=== PATIENT | female | born 1955 | race Caucasian/White ===

== ENCOUNTER 2018-08-13 15:41 | Outpatient (REF) | payer BC, SELFPAY ==
--- NOTE | 2018-08-13 11:50 | PAPFT_PTH ---
PATIENT: Mahesh Hernandez LOC: [facility] U#:[id number] AGE/SX: 63/F ROOM: RE08/13/[address]: DORITA Maria : 1955 BED: DIS: 08/13/2018 SPEC #: [id number] RECD: 08/13/18 17:03 STATUS: ARY RETessa #: [id number] DENZEL: 08/13/18 11:[address]: Luann Willard DEPT: [facility] Cytology RECD BY: Elizabeth Varner ENTERED: 08/13/18 17:03 SP TYPE: PAPFT OTHR DR: Courtney Kruse Tissues: 1 - CX/ENDOCX FOR PAP SMEARS Procedures: PAP THIN PREP/UVM Screening HPV DNA PROBE Comments: [id number]
== END 2018-08-13 16:01 ==
LOC: LBN 15:41
PROVIDERS: PCP Family Medicine; Visit Provider Nurse Practitioner Family
DX: Z12.4 Encounter for screening for malignant neoplasm of cervix (principal); Z11.51 Encounter for screening for human papillomavirus (HPV)
CPT/HCPCS: 88142; 87624

== ENCOUNTER 2018-08-23 01:48 | Outpatient (CLI) | payer BC, SELFPAY ==
--- NOTE | 2018-08-23 10:50 | DI.MAMMO_ITS ---
SYMPTOMS/DIAGNOSIS: SCREENING, Z12.31 MAMMOGRAM: Mammograms were interpreted according to the usual protocol including computer analysis with CAD system, tomosynthesis and C view imaging. Comparison with prior examinations. Breast density B. There are scattered nodular densities in the breasts which appear stable. No suspicious masses or microcalcifications are seen. The skin and axilla are unremarkable. IMPRESSION: No evidence for malignancy. Yearly mammography is recommended. Category 2. MQSA ASSESSMENT OF FINDINGS: Negative with benign findings. Category 2. Patient will receive a letter notifying them of these results. BI-RADS category B. There are scattered areas of fibroglandular density.
== END 2018-08-23 02:08 ==
PROVIDERS: PCP Family Medicine; Visit Provider Nurse Practitioner Family
DX: Z12.31 Encounter for screening mammogram for malignant neoplasm of breast (principal)
CPT/HCPCS: 77063; 77067

== ENCOUNTER 2018-11-23 09:06 | Outpatient (REF) | payer BC, SELFPAY ==
[2018-11-23 22:13] LABS: BUN 11 mg/dL (7-18); CREATININE 0.65 mg/dL (0.55-1.02); Calcium 8.6 mg/dL (8.5-10.1); Calculated LDL 201; Chloride 101 mmol/L (98-107); Cholesterol 282 mg/dL (50-200); Glucose 89 mg/dL (70-100); HDL Cholesterol 57 mg/dL (40-60); Potassium 4.3 mmol/L (3.5-5.1); Sodium 139 mmol/L (136-145); Triglyceride 124 mg/dL (30-150)
[2018-11-23 22:42] LABS: Uric Acid 4.2 mg/dL (2.6-6.0)
== END 2018-11-23 09:26 ==
LOC: NCHCN 09:06
PROVIDERS: PCP Family Medicine; Visit Provider Family Medicine
DX: E78.49 Other hyperlipidemia (principal); M13.80 Other specified arthritis, unspecified site
CPT/HCPCS: 80048; 80061; 83721; 84550

== ENCOUNTER 2019-10-28 12:58 | Outpatient (REF) | payer BC, SELFPAY ==
[2019-10-28 21:36] LABS: Calculated LDL 204 mg/dL (<100); Cholesterol 289 mg/dL (<200); HDL Cholesterol 58 mg/dL (40-60); Triglyceride 138 mg/dL (<150)
[2019-10-28 22:15] LABS: Hemoglobin A1C 5.5 % (3.8-5.6)
== END 2019-10-28 13:18 ==
LOC: NCHCN 12:58
PROVIDERS: PCP Family Medicine; Visit Provider Family Medicine
DX: E78.49 Other hyperlipidemia (principal); Z00.00 Encounter for general adult medical examination without abnormal findings
CPT/HCPCS: 80061; 83036

== ENCOUNTER 2020-02-07 00:28 | Outpatient (CLI) | payer BC, SELFPAY ==
--- NOTE | 2020-02-07 11:00 | DI.MAMMO_ITS ---
EXAM: MG MAMMO SCREENING CLINICAL HISTORY: screening TECHNIQUE: Mammograms were interpreted according to the usual protocol including computer analysis w [employer] CAD system, tomosynthesis and C-view imaging. COMPARISON: FINDINGS: The breasts are of moderate density with fairly symmetrical distribution of fibroglandular tissue. N o dominant mass or clumped microcalcification is identified in either breast. The current examinatio n is compared with previous examinations including August 2018 and there has no gross interval change in appearance in comparison with the prior studies. IMPRESSION: No specific evidence of malignancy at this time. Routine screening examinations are suggested yearl y intervals in this age group according to the ACS ACR guidelines. Category: BI-RADS Cat 1 - Negative Breast Density - Category B - Scattered areas of fibroglandular density
== END 2020-02-07 00:48 ==
PROVIDERS: PCP Family Medicine; Visit Provider Nurse Practitioner Family
DX: Z12.31 Encounter for screening mammogram for malignant neoplasm of breast (principal); R92.2 Inconclusive mammogram
CPT/HCPCS: 77063; 77067

== ENCOUNTER 2022-01-09 12:16 | Outpatient (REF) | payer OTHER, SELFPAY ==
[2022-01-09 20:40] LABS: Iron 97 ug/dL (50-170); Total Iron Binding Capacity 251 ug/dL (250-450); Transferrin Sat 39 % (15-50)
[2022-01-09 20:53] LABS: Ferritin 138 ng/mL (8-252)
[2022-01-13 10:00] LABS: Transferrin 197 mg/dL (201-352)
== END 2022-01-09 12:17 | disposition home or self-care (01) ==
LOC: NCHCN 12:16
PROVIDERS: PCP Family Medicine; Visit Provider Family Medicine
DX: Z13.0 Encounter for screening for diseases of the blood and blood-forming organs and certain disorders involving the immune mechanism (principal)
CPT/HCPCS: 82728; 83540; 83550; 84466

== ENCOUNTER 2022-05-26 17:07 | Outpatient (REF) | payer MEDICARE, SELFPAY ==
--- NOTE | 2022-05-26 11:40 | PAPFT_PTH ---
PATIENT: Mahesh Hernandez LOC: [facility] U#:[id number] AGE/SX: 67/F ROOM: RE05/26/[address]: Patria Aguiar MD : 1955 BED: DIS: 05/26/2022 SPEC #: [id number] RECD: 05/26/22 17:36 STATUS: ARY RETessa #: [id number] DENZEL: 05/26/22 11:[address]: Patria Aguiar DEPT: [facility] Cytology RECD BY: Elizabeth Varner ENTERED: 05/26/22 17:37 SP TYPE: PAPFT OTHR DR: Courtney Kruse Tissues: 1 - CX/ENDOCX FOR PAP SMEARS Procedures: PAP THIN PREP/UVM Screening HPV DNA PROBE Comments: [id number]
== END 2022-05-26 17:08 | disposition home or self-care (01) ==
LOC: LBN 17:07
PROVIDERS: PCP Family Medicine; Visit Provider Obstetrics & Gynecology
DX: Z11.51 Encounter for screening for human papillomavirus (HPV); Z01.419 Encounter for gynecological examination (general) (routine) without abnormal findings
CPT/HCPCS: 88142; 87624

== ENCOUNTER 2022-06-25 01:47 | Outpatient (CLI) | payer MEDICARE, SELFPAY ==
--- NOTE | 2022-06-25 13:08 | DI.MAMMO_ITS ---
Exam(s) MAMMO SCREENING EXAM: MAMMO SCREENING CLINICAL HISTORY: screening,z12.39 TECHNIQUE: Mammograms were interpreted according to the usual protocol including computer analysis w [employer] CAD system, tomosynthesis and C-view imaging. COMPARISON: 2013 through 2019 FINDINGS: The breasts are composed of scattered fibroglandular densities, Breast Density category B. No suspicious masses or suspicious microcalcifications are seen. No skin thickening or abnormal axillary lymph nodes are seen. There has been no significant change from prior exams. IMPRESSION: BI-RADS Category 1, Negative mammogram Yearly screening mammography is recommended. Breast Density - Category B, scattered fibroglandular densities. A negative radiographic report should not delay biopsy if a dominant or clinically suspicious mass is present. Up to ten percent of cancers are not identified on mammography. A negative report may reinforce clinical impression. Adenosis and dense breasts may obscure an underlying neoplasm. False positive reports average 6 to 10%. Patient will receive a letter notifying them of these results.
== END 2022-06-25 02:07 ==
LOC: DI 01:47
PROVIDERS: PCP Family Medicine; Visit Provider Obstetrics & Gynecology
DX: Z12.31 Encounter for screening mammogram for malignant neoplasm of breast (principal)
CPT/HCPCS: 77063; 77067

== ENCOUNTER 2022-07-15 15:25 | Outpatient (REF) | payer MEDICARE, SELFPAY ==
[2022-07-15 21:14] LABS: Anion Gap 7.7 mmol/L (3-11); BUN 13 mg/dL (7-18); CO2 29.3 mmol/L (21.0-32.0); CREATININE 0.6 mg/dL (0.55-1.02); Calcium 9.4 mg/dL (8.5-10.1); Calculated LDL 263 mg/dL (<100); Chloride 99 mmol/L (98-107); Cholesterol 343 mg/dL (<200); Estimated GFR 98.32 (mL/min/1.73m2); Glucose 113 mg/dL (74-106); HDL Cholesterol 63 mg/dL (40-60); Potassium 3.6 mmol/L (3.5-5.1); Sodium 136 mmol/L (136-145); Triglyceride 87 mg/dL (<150)
== END 2022-07-15 15:26 | disposition home or self-care (01) ==
LOC: NCHCN 15:25
PROVIDERS: PCP Family Medicine; Visit Provider Family Medicine
DX: R73.09 Other abnormal glucose (principal); E78.00 Pure hypercholesterolemia, unspecified
CPT/HCPCS: 80048; 80061

== ENCOUNTER 2022-10-15 13:01 | Outpatient (REF) | payer MEDICARE, SELFPAY ==
--- OUTSIDE RECORDS SUMMARY | 2022-10-15 13:09 | XMS_ITS | CCD ---
Author Name Unknown Address [address] [place] [address] [phone] Organization Unknown Address [address] [place] [address] [phone] Care Team Providers Care Dog Breeder Name Role Phone LADY BAEZ Attending Physician [phone] Vital Signs Unknown or Not Available. Allergies Allergy Code Allergy Type Reaction Status LATEX 0 Allergy to substance LOCAL RASH Acti ve Procedures Unknown or Not Available. History of Immunizations Unknown or Not Available. Problems Unknown or Not Available. Results Unknown or Not Available. Active Medications Unknown or Not Available. Medications Administered During Visit Unknown or Not Available. Encounters Encounter Diagnosis Diagnosis Code Start Date Other forms of dyspnea R0609 3 Social History Smoking Status Code Start Date End Date Never smoker [id number] Patient Decision Aids Unknown or Not Available. Discharge Instructions You were admitted to [facility] on 08/29/2022 12:40 with a principal diagnosis of Other forms of dyspnea You were discharged from [facility] on 08/29/2022 12:40 Should you have any questions prior to discharge, please contact a member of your healthcare team. If you have left the hospital and have any questions, please contact your primary care physician. Chief Complaint and Reason For Visit Unknown or Not Available. Function Status Unknown or Not Available. Plan of Care Unknown or Not Available. Referral/Transition of Care Unknown or Not Available.
--- OUTSIDE RECORDS SUMMARY | 2022-10-15 13:09 | XMS_ITS | CCD ---
Author Name Unknown Address [address] [place] [address] [phone] Organization Unknown Address [address] [place] [address] [phone] Care Team Providers Care Blade Balancer Name Role Phone FRANCIS NEVAREZ Attending Physician [phone] FRANCIS NEVAREZ Rounding (Secondary) Physician [phone] Vital Signs Unknown or Not Available. Allergies [...] Encounters Encounter Diagnosis Diagnosis Code Start Date Hallux rigidus, right foot M2021 12/12 Social History Smoking Status Code Start Date End Date Never smoker [id number] Patient Decision Aids Unknown or Not Available. Discharge Instructions You were admitted to [facility] on 12/12/2021 14:29 with a principal diagnosis of Hallux rigidus, right foot You were discharged from [facility] on 12/12/2021 00:00 Should you have any questions prior to [...]
--- OUTSIDE RECORDS SUMMARY | 2022-10-15 13:09 | XMS_ITS | CCD ---
Author Name Unknown Address [address] [place] [address] [phone] Organization Unknown Address [address] [place] [address] [phone] Care Team Providers Care Printer Slotter Operator Name Role Phone FRANCIS NEVAREZ Attending Physician [phone] FRANCIS NEVAREZ Rounding (Secondary) Physician [phone] Vital Signs Unknown or Not Available. Allergies [...] Start Date Hallux rigidus, right foot M2021 01/07 Social History Smoking Status Code Start Date End Date Never smoker [id number] Patient Decision Aids Unknown or Not Available. Discharge Instructions You were admitted to [facility] on 01/07/2022 11:42 with a principal diagnosis of Hallux rigidus, right foot You were discharged from [facility] on 01/07/2022 00:00 Should you have any questions prior [...]
[2022-10-15 15:17] LABS: ALT 37 U/L (14-59); Calculated LDL 74 mg/dL (<100); Cholesterol 154 mg/dL (<200); HDL Cholesterol 66 mg/dL (40-60); Triglyceride 70 mg/dL (<150)
== END 2022-10-15 13:02 | disposition home or self-care (01) ==
LOC: NCHCN 13:01
PROVIDERS: PCP Family Medicine; Visit Provider Family Medicine
DX: E78.49 Other hyperlipidemia (principal)
CPT/HCPCS: 80061; 84460

== ENCOUNTER 2024-07-29 00:04 | Outpatient (CLI) | payer MEDICARE, SELFPAY ==
--- OUTSIDE RECORDS SUMMARY | 2024-07-29 00:06 | XMS_ITS | Clinical Summary ---
Author Organization [facility] [place] [address] Care Team Providers Care Security Infrastructure Engineer Name Role Phone Unavailable Primary Care Provider Unavailabl e Encounters Date Type Department Care Team Description 06/22/2024 Interpretation Only [facility] in [address] [address] Courtney Kruse MD from Last 3 Months Social History Tobacco Use Types Packs/Day Years Used Date Smoking Tobacco: Never Assessed Sex and Gender Information Value Date Recorded Sex Assigned at Not on file Gender Identity Not on file Sexual Orientation Not on file Plan of Treatment Health Maintenance Due Date Last Done Comments CT Colonography 1955 Colonoscopy 1955 Colorectal Cancer Screening 1955 FIT DNA 1955 FIT 1955 Sigmoidoscopy (10 year) with FIT yearly 1955 Sigmoidoscopy 1955 Hepatitis C Screening 1973 Tetanus/Diphtheria/Pertussis Vaccines (1 - Tdap) 02/25 Breast Cancer Share Decision Needed 1995 Breast Cancer screening 1995 Pneumoccocal Vaccine: 50+ (1 of 1 - PCV) 2005 Zoster vaccine (1 of 2) 2005 Advance Directive 2010 Covid-19 Vaccine ( - 2023- season) 2024 Influenza (Flu) vaccine (1 o f 1 - Influenza standard series) 02/14/2024 Bone Density Scan 06/22/2039 06/22/2024 Procedures Procedure Name Priority Date/Time Associated Diagnosis Comments DXA CENTRAL SPINE, HIP, AND/OR WHOLE BODY (GENERIC) Routine 06/22/2024 12:33 PM EST from Last 3 Months Results * DXA Central Spine, Hip, and/or Whole Body (Generic) (06/22/2024 12:33 PM EST) PT CLASS O RAD ADMITDTTM [id number] [facility] PT [facility] INFO [id number]^NIRMAL ^COURTNEY^E RAD EXAM DESC XDXAC^BD DXA BONE DENSITY HIP AND SPINE^RIS [facility] WORKSTATION ID [id number] [facility] Anatomical Region Laterality Modality C-spine, Hip N/A Radiographic Tiana ging Impressions 06/22/2024 5:06 PM EST Osteopenia in the lumbar spine and the left femoral neck. ___ Prevent Fractures! PATIENTS NOT ON TREATMENT: For patients with osteopenia, *the fracture risk calculated by FRAX is displayed below*. Offer treatment for osteoporosis (calcium, vitamin D, and medication) if: * ??T less than or equal to -2.5, after excluding or treating secondary causes * ??FRAX gives a 10-year risk of hip fracture greater than or equal to 3% or major osteoporotic fracture (MOF) greater than or equal to 20% * ??Fragility fracture, regardless of T score (fracture without trauma, or from trauma equivalent to falling from standing height or less) If not treating, repeat DXA at the following intervals: * ??T greater than or equal to -1(normal): Repeat DXA in 10-15 years * ??T -1.0 to -1.5 (mild osteopenia): Repeat DXA in 10-15 years * ??T -1.5 to 2.0 (moderate osteopenia): Repeat DXA in 5 years * ??T -2.0 to -2.5 (severe osteopenia): Repeat DXA in 2 years The bone density raw data are listed below. Bone density raw data: Thank you for letting us participate in the care of this patient. ??If you are a health care provider and have any questions regarding this report, please contact the number below. ??For patients who have questions please contact the health inpatient care manager rn that requested your imaging first. ? Narrative 06/22/2024 5:06 PM EST EXAMINATION: BD DXA BONE DENSITY HIP AND SPINE CLINICAL HISTORY: ??Reason for Spine: ??POSTMENOPAUSAL Add'l Info: TECHNIQUE: Scans were acquired at the lumbar spine, LEFT hip. COMPARISON: October 03, 2009 FINDINGS: ?? Bone mineral density in the lumbar spine L1 L4 is 0.880 g/sq cm with T score -1.5. There is 2.9% decrease in bone mineral density compared to 2009. Bone mineral density in the left hip is 0.796 g/sq cm with T score -1.2. Bone mineral density in the left femoral neck is 0.622 g/sq cm with T score -2.0. There is 7.8% decrease in bone mineral density compared to 2010. The FRAX score, an estimated 10 year fracture risk is: * ??Major osteoporotic fracture: 12% Hip fracture: 2.3% Procedure Note Noah Hodge MD - 06/22/2024 EXAMINATION: BD DXA BONE DENSITY HIP AND SPINE CLINICAL HISTORY: Reason for Spine: POSTMENOPAUSAL Add'l Info: TECHNIQUE: Scans were acquired at the lumbar spine, LEFT hip. COMPARISON: October 03, 2009 FINDINGS: Bone mineral density in the lumbar spine L1 L4 is 0.880 g/sq cm with Tscore -1.5. There is 2.9% decrease in bone mineral density compared to 2010. Bone mineral density in the left hip is 0.796 g/sq cm with T score -1.2. Bone mineral density in the left femoral neck is 0.622 g/sq cm with Tscore -2.0. There is 7.8% decrease in bone mineral density compared to 2010. The FRAX score, an estimated 10 year fracture risk is: * Major osteoporotic fracture: 12% Hip fracture: 2.3% IMPRESSION Osteopenia in the lumbar spine and the left femoral neck. ___ Prevent Fractures! PATIENTS NOT ON TREATMENT: For patients with osteopenia, *the fracture risk calculated by FRAX isdisplayed below*. Offer treatment for osteoporosis (calcium, vitamin D, and medication)if: * T less than or equal to -2.5, after excluding or treating secondarycauses * FRAX gives a 10-year risk of hip fracture greater than or equal to 3%or major osteoporotic fracture (MOF) greater than or equal to 20% * Fragility fracture, regardless of T score (fracture without trauma, orfrom trauma equivalent to falling from standing height or less) If not treating, repeat DXA at the following intervals: * T greater than or equal to -1(normal): Repeat DXA in 10-15 years * T -1.0 to -1.5 (mild osteopenia): Repeat DXA in 10-15 years * T -1.5 to 2.0 (moderate osteopenia): Repeat DXA in 5 years * T -2.0 to -2.5 (severe osteopenia): Repeat DXA in 2 years The bone density raw data are listed below. Bone density raw data: Thank you for letting us participate in the care of this patient. If youare a health care provider and have any questions regarding this report,please contact the number below. For patients who have questions please contactthe health inpatient care manager rn that requested your imaging first. Courtney Kruse MD IMG DEXA ORDERABLES from Last 3 Months
--- OUTSIDE RECORDS SUMMARY | 2024-07-29 00:06 | XMS_ITS | Encounter Summary ---
Author Organization [facility] [place] [address] Care Team Providers Care Exterior Door Installer Name Role Phone Unavailable Primary Care Provider Paddy e Encounter Details Date Type Department Care Team (Late st Contact Info) Description 06/22/[address] [facility] in [address] [phone] Courtney Kruse MD [address] [place], [place] [phone] Social History Tobacco Use Types Packs/Day Years Used Date Smoking Tobacco: Never Assessed Sex and Gender Information Value Date Recorded Sex Assigned at Not on file Gender Identity Not on file Sexual Orientation Not on file documented as of this encounter Plan of Treatment Not on file documented as of this encounter Procedures Procedure Name Priority Date/Time Associated Diagnosis Comments DXA CENTRAL SPINE, HIP, AND/OR WHOLE BODY (GENERIC) Routine 06/22/2024 12:33 PM EST documented in this encounter Results * DXA Central Spine, Hip, and/or Whole Body (Generic) (06/22/2024 12:33 PM EST) PT CLASS O RAD ADMITDTTM [id number] RAD PT RAD INFO [id number]^NIRMAL ^COURTNEY^Tania RAD EXAM DESC XDXAC^BD DXA BONE DENSITY HIP AND SPINE^RIS [facility] WORKSTATION ID [id number] [facility] Anatomical Region Laterality Modality C-spine, Hip N/A [...] who have questions please contact the health rn coronary care unit that requested your imaging first. ? Electronically signed by: Noah Hodge MD, [facility] ([phone]), at 06/22/2024 5:06 PM Narrative 06/22/2024 5:06 PM EST EXAMINATION: BD [...] in bone mineral density compared to 2009. The FRAX score, an estimated 10 year [...] in bone mineral density compared to 2009. The FRAX score, an estimated 10 year [...] patients who have questions please contactthe health rn coronary care unit that requested your imaging first. Courtney Kruse MD IMG DEXA ORDERABLES documented in this encounter Visit Diagnoses Not on filedocumented in this encounter
--- OUTSIDE RECORDS SUMMARY | 2024-07-29 00:07 | XMS_ITS ---
Author Organization Unknown Address [address] [place] [address] [phone] Phone Care Team Providers Care Toddler Lead Teacher Name Role Phone ROQUE Valencia Attending Unavailable NIRMAL Marin Primary Unavailable Results XR FOOT 2V LT* - Completed: 01/07/2022 14:08 LOINC: LEFT FOOT - 2 VIEWS:AP and l ateral weightbearing views reveal no evidence of fracture nor diastasis of the Lis franc joint. Degenerative changes in the great toe metatarsal phalangeal joint noted. No erosions at this level. On the lateral view there is a tiny inferior calcaneal spur. Enthesophyte posteriorly at the insertion of the Achilles tendon on the posterior calcaneus. Dictated by: RUCHI THORPE MD Transcribed by: TAYLOR 01/08/2211:01 D Friday, January 07, 2022 5:38:05 PM [phone] Electronically Reviewed and Signed By: DEANN THORPE MD 01/15/22 09:03 Copy for: [facility] HEALTH INFORMATION MGMT XR FOOT 2V RT* - Completed: 01/07/2022 14:08 LOINC: RIGHT FOOT - 2 VIEWS:AP and lateral weightbearing views of the right foot reveal no evidence of fracture nor diastasis of the Lis franc joint. There are moderate to advanced degenerative changes in the great toe metatarsal phalangeal joint, somewhat similar to the opposite side. Other MTP joints appear unremarkable. No inferior calcaneal spur. Enthesophyte noted posteriorly at the insertion of the Achilles on the posterior calcaneus, similar to the opposite side. Dictated by: DEANN THORPE MD Transcribed by: TAYLOR 01/08/2211:03 D Friday, January 07, 2022 5:38:52 PM [id number] Electronically Reviewed and Signed By: DEANN THORPE MD 01/15/22 09:04 Copy for: 185 HEALTH INFORMATION MGMT Social History Type Status Start Date End Date Code Code Syst em Smoking History Never smoker (Never Smoked) [id number] SNOMED CT Sex Female Hospital Discharge Instructions Should you have any questions prior to discharge, please contact a member of your healthcare team. If you have left the hospital and have any questions, please contact your primary care physician. Reason For Referral No Data Found Allergies and Adverse Reactions Allergy Substance Reaction Severity Start Date Concern Status Co de Code System LATEX LOCAL RASH (SNOMED-CT: null) Active Plan of Treatment BONE DENSITY DEXA SPINE & HIP 5 Encounters Encounter Diagnosis Start Date Code Code Sys tem 01/07/2022 [id number] SNOMED-CT Personal Care Team Section Performer Name Performer Role Active Date Inactive Da jose
--- OUTSIDE RECORDS SUMMARY | 2024-07-29 00:07 | XMS_ITS ---
Author Organization Unknown Address [address] [place] [address] [phone] Phone Care Team Providers Care Top Executive Name Role Phone SASHA NARAYANAN Attending Unavailable NIRMAL J LUIS Tania Primary Unavailable Social History Type Status Start Date End Date Code Code Syst em Smoking History Never smoker (Never Smoked) [id number] SNOMED CT Sex Female Hospital Discharge Instructions [...] Treatment BONE DENSITY DEXA SPINE & HIP Encounters Encounter Diagnosis Start Date Code Code Sys tem Other forms of dyspnea 08/29/2022 SNOME D-CT Personal Care Team Section Performer Name Performer Role Active Date Inactive Da te
--- OUTSIDE RECORDS SUMMARY | 2024-07-29 00:07 | XMS_ITS ---
Author Organization Unknown Address [address] [place] [address] [phone] Phone Care Team Providers Care Kiln Furniture Caster Name Role Phone ROQUE Valencia Attending Unavailable NIRMAL DIETZ Tania Primary Unavailable Social History Type Status Start Date End Date Code Code Syst em Smoking History Never smoker (Never Smoked) 169888626 SNOMED CT Sex Female Hospital Discharge Instructions [...] Diagnosis Start Date Code Code Sys tem 12/12/2021 [id number] SNOMED-CT Personal Care Team Section Performer Name Performer Role Active Date Inactive Da jose
--- OUTSIDE RECORDS SUMMARY | 2024-07-29 00:07 | XMS_ITS ---
Author Organization Unknown Address [address] [place] [address] [phone] Phone Care Team Providers Care Lcac Operator Name Role Phone NIRMAL J LUIS Tania Attending Unavailable Social History Type Status Start Date End Date Code Code Syst em Smoking History Never smoker (Never Smoked) [id number] SNOMED CT Sex Female Hospital Discharge Instructions [...] Start Date Code Code Sys tem Other low back pain 11/21/2022 SNOMED-C T Personal Care Team Section Performer Name Performer Role Active Date Inactive Da jose
--- OUTSIDE RECORDS SUMMARY | 2024-07-29 00:08 | XMS_ITS | Encounter Summary ---
Author Organization [facility] Address [address] [place] [address] Care Team Providers Care Meter Inspector Name Role Phone Unknown, Provider MD Primary Care Provider Unava ilable Unknown, Provider MD Unavailable Unavailable Encounter Details Date Type Department Care Team ([facility] st Contact Info) Description 05/27/2022 Lab Requisition [facility] Pathology & Laboratory Medicine - [facility] [address] [place] [address] Patria Aguiar MD [address] [place] [address] [place] [phone] Encounter for other general examination Social History Tobacco Use Types Packs/Day Years Used Date Smoking Tobacco: Never Comments Unknown Sex and Gender Information Value Date Recorded Sex Assigned at Not on file Legal Sex Female 18:36 EST Gender Identity Not on file Sexual Orientation Not on file documented as of this encounter Plan of Treatment Not on file documented as of this encounter Procedures Procedure Name Priority Date/Time Associated Diagnosis Comments PAP TEST Today 05/26/2022 11:40 EST Encounter for other general examination HPV DNA DETECTION WITH GENOTYPING, PCR Today 05/26/2022 11:40 EST Encounter for other general examination documented in this encounter Results * HUMAN PAPILLOMAVIRUS (HPV) DETECTION-HIGH RISK TYPES (05/26/2022 11:40 EST) HPV other High Risk types, PCR Negative Negative 06/03/2022 15:49 EST [facility] Comment:No E6 or E7 mRNA is detected from HPV types 16,18,31,33,35,39,45,51,52,56,58,59,66, and 68 by pathology assistant mediated amplification. Papanicolaou smear specimen (specimen) CERVIX UTERI STRUCTURE / Unknown 05/26/2022 11:40 EST 06/02/2022 13:33 EST us Patria Aguiar MD MICROBIOLOGY - GENERAL ORDER [place] Final Result [facility] [address] [place] [phone] * PAP TEST (05/26/2022 11:40 EST) Specimens A. Cervix and/or Endocervix , ThinPrep Imaging System with Manual Evaluation 06/03/2022 15:49 [facility] Specimen Adequacy Satisfactory for Evaluation - assessment of transformation zone component not applicable ( e.g. atrophy, vaginal sample, hysterectomy) Scant squamous epithelial component, contamination present, possibly lubricant 06/03/2022 15:49 [facility] General Categorization Negative for intraepithelial lesion or malignancy 06/03/2022 15:49 [facility] Attestation . 06/03/2022 15:49 [facility] at 1549 Clinical History See below 06/03/20 15:49 [facility] HPV The result for the Human Papillomavirus (HPV) Detection-High Risk Types is Negative. No E6 or E7 mRNA is detected from HPV types 16,18,31,33,35,39 ,45,51,52,56,58,5 9,66, and 68 by pathology assistant mediated amplification.Elisabeth ting was performed on specimen [id number] and was resulted on 06/03/2022 1549 EST by MOY, LAB INSTRUMENT RESULTS IN 06/03/2022 15:49 [facility] Performing Lab [facility] 06/03/2022 15:49 [facility] Scanned Images 06/03/2022 15:49 [facility] Papanicolaou smear specimen (specimen) CERVIX UTERI STRUCTURE / Unknown 05/26/2022 11:40 EST 05/27/2022 11:34 EST us Patria Aguiar MD PATHOLOGY ORDERABLES Final R esult [facility] [address] [place] [phone] documented in this encounter Visit Diagnoses Diagnosis Encounter for other general examination documented in this encounter Care Teams Meter Inspector Relationship Specialty Start Date End Date Unknown, ProviderMD PCP - General 04/15/21 Unknown, ProviderMD 04/15/21 documented as of this encounter
--- OUTSIDE RECORDS SUMMARY | 2024-07-29 00:08 | XMS_ITS | Encounter Summary ---
Author Organization [facility] Address [address] [place] [address] Care Team Providers Care First Calender Worker Name Role Phone Unavailable Primary Care Provider Unavailabl e Encounter Details Date Type Department Care Team (Late st Contact Info) Description 05/03/2007 Results Only [facility] conversion [address] [place] [address] Emelyn Olivarez NP Social History Tobacco Use Types Packs/Day Years Used Date Smoking Tobacco: Never Assessed Comments Unknown Sex and Gender Information Value Date Recorded Sex Assigned at Not on file Legal Sex Female 18:36 EST Gender Identity Not on file Sexual Orientation Not on file documented as of this encounter Plan of Treatment Not on file documented as of this encounter Procedures Procedure Name Priority Date/Time Associated Diagnosis Comments CYTOPATHOLOGY Routine 05/03/2007 0:00 EST documented in this encounter Results * CYTOPATHOLOGY (05/03/2007 0:00 EST) Pathology Report: CYTOPATHOLOGY REPORT Reports generated via electronic interface contain original data; however they are lacking the format of the original report. Caution should be taken when reading/interpreti ng unformatted reports. Name: ? KRYSTLE HERNANDEZ ? Accession #: ? [id number] : ? 1955 (Age: 52) ??F ?Collect Date: ? 05/03/2007 Location: ? [facility] ? Receive Date: ? 05/04/2007 Provider: ?EMELYN OLIVAREZ ELECTRONICS ENGINEERING MANAGER Copy to: ? Specimen/Source: ?ThinPrep Pap Test, Cervix/Endocervix, processed on [employer] ThinPrep Imaging System, with manual evaluation Last Menstrual Period: ? 2004 Other: ? HPVA - HPV testing requested if ASC-US on the current ThinPrep Pap test. ? SPECIMEN ADEQUACY ? Satisfactory for Evaluation - assessment of transformation zone component not applicable ( e.g. atrophy, vaginal sample, hysterectomy) GENERAL CATEGORIZATION ? Negative for Intraepithelial Lesion or Malignancy ? Document reviewed and electronically signed by: ? BEATRICE Madrigal(ASCP) ? Report Date: ??05/07/2007 12:45 End of Report [facility] GONZALEZ 05/03/2007 05/04/2007 us Emelyn Olivarez NP PATHOLOGY ORDERABLES Final Re sult [facility] GONZALEZ [address] [place] [address] documented in this encounter Visit Diagnoses Not on filedocumented in this encounter
--- OUTSIDE RECORDS SUMMARY | 2024-07-29 00:08 | XMS_ITS | Encounter Summary ---
Author Organization [facility] Address [address] [place] [address] Care Team Providers Care Criminal Intelligence Specialist Name Role Phone Unknown, Provider Primary Care Provider Unava ilable Reason for Visit * Reason Comments Basal Cell Carcinoma left medial forehea d Encounter Details Date Type Department Care Team (Late st Contact Info) Description 02/22/2016 8:00 EDT Office Visit [facility] Dermatology 5th Floor [facility] [address] [place] [address] Darnell Adkins MD [address] [place] [address] [place] [phone] Basal cell carcinoma of forehead (Primary Dx) Social History Tobacco Use Types Packs/Day Years Used Date Smoking Tobacco: Never Comments Unknown Sex and Gender Information Value Date Recorded Sex Assigned at Not on file Legal Sex Female 18:36 EST Gender Identity Not on file Sexual Orientation Not on file documented as of this encounter Last Filed Vital Signs Vital Sign Reading Time Taken Comments Blood Pressure 134/89 02/22/2016 0800 EDT Pulse 65 02/22/2016 0800 EDT Temperature 36 ??C (96.8 ??F) 02/22/2016 0800 EDT Respiratory Rate - - Oxygen Saturation - - Inhaled Oxygen Concentration - - Weight - - Height - - Body Mass Index - - documented in this encounter Discharge Diagnoses Diagnosis C44.319 Basal cell carcinoma of skin of other parts of face-C44.319[ICD-10-CM] documented in this encounter Patient Instructions * Patient Instructions* Darnell Adkins MD - 02/22/2016 8:07 EDT WOUND CARE INSTRUCTIONS FOR SKIN SURGERY The BANDAGE should remain in place for 24 hours. You may shower or bathe after 24 hours; remove thebandage and replace it after the shower (see wound care section below for instructions on how to dothis). DISCOMFORT: Expect some discomfort. Extra-Strength Tylenol, taken as directed by the custom garment designer, will help relieve pain. If the pain is severe please call the office. BLEEDING: You may notice some blood on the edges of the dressing the first day - this is NORMAL. Ifthe bleeding soaks through the dressing, remove the dressing, and apply firm, steady pressure with a moist clean wash cloth for fifteen minutes. If the bleeding stops, redress the wound, if not, callour office at . ACTIVITY: Relax and limit your physical activity for the first 48 hours after surgery. Also, if thesurgery was on the face or scalp, keep your head elevated. Your provider may ask you to limit activity for a longer period of time. APPEARANCE: There may be swelling and bruising around the wound, especially near the eyes. Some redness is normal, but the wound should not be red, hot and tender. If the wound becomes increasingly inflamed, warm, or drains pus, please call our office. WOUND CARE: ?? Change the dressing daily and when it becomes wet. ?? Wash hands with soap and water before changing the dressing. ?? Clean the wound with mild soap and warm water. ?? You may gently loosen any crusts with a cotton swab. ?? The wound may be slightly tender and may bleed a small amount. A small amount of discharge is normal. ?? Apply a thin layer of sterile petroleum jelly over the wound. ?? Cover with Telfa or similar non-stick dressing or bandage. ?? Tape in place with Hypafix or paper tape. ?? It is important to keep the wound covered for 7 days at which point the dressing may be removed and does not need to be reapplied. ?? If there are areas that are not fully healed after 7 days then the dressing should remain in place longer until the skin has healed completely. If your sutures require removal, you will receive specific instructions regarding when and where tohave them removed. Dissolvable sutures generally fall out in 7 to 14 days. If there are suture remnants still present after 7 days you may pull them out with tweezers. CONTACT THE OFFICE IF YOU EXPERIENCE: ?? Increasing redness ?? Wound is warm or hot to touch ?? Increasing pain ?? Drainage with a foul odor ?? Rapid swelling of the wound ?? Fever or chills Please call our office or . documented in this encounter Progress Notes * Darnell Adkins MD - 02/22/2016 0806 EDT Images from the original note were not included. MOHS SURGERY POST-OP SUMMARY Mahesh Hernandez is a 60 y.o. year old female who underwent Mohs surgery today 02/22/2016. The following is a summary of the operative findings: Lesion 1 basal cell carcinoma Location left medial forehead Size Preop (cm) 1.4 x 0.6 cm Size Postop (cm) 1.1 x 1.6 cm Stages 2 Depth of Excision muscle Repair complex linear repair Ms. Hernandez was discharged from the operative suite in good condition. She was carefully instructed inpostoperative wound care both verbally and in writing. Return for follow up as needed. Note: None Darnell Adkins MD 02/22/2016 8:07 * Daniel Fischer PA-C - 02/22/2016 0803 EDT MOHS EVALUATION NOTE Chief Complaint Patient presents with ??? Basal Cell Carcinoma left medial forehead Subjective: Mahesh Hernandez is a 60 y.o. year old female who is referred to me for evaluation and treatment of a basal cell carcinoma of the left and medial forehead by Veronica Aguilar NP. The patient is referred to consider Mohs surgery versus other treatment options. The patient notes that this lesion has been present for 8 or 9 years, and reports no symptoms. The patient???s risk factors for skin cancer includefitzpatrick type I or II skin, advanced age and avid outdoor lifestyle. Risk factors: Pacemaker/ICD: None Anticoagulants: None Total joint replacements/valves: None Allergies: Patient is allergic to latex, natural rubber. Immunosuppression: None For full Medical, Surgical, Family, and Social histories as well as Review of Systems, Medications and Allergies please see those sections of this encounter in the electronic chart which I have personally reviewed. Objective: Complete physical examination of the affected area in the office today revealed a 1.4 cm x 0.6 cm asymmetric, pearly and pink, plaque located on the left and medial forehead. Careful examination of the draining lymph nodes revealed no suspicious adenopathy. Assessment: - Basal Cell carcinoma, left medial forehead. Plan: Ms. Hernandez and I discussed the meaning of the diagnosis of skin cancer and the options for treatment including curettage and electrodesiccation, radiation therapy, conventional excision, and excision by Mohs micrographic surgery. Due to the need for a high cure rate and optimum functional and aesthetic outcome, I feel that Mohs surgery is indicated. The risks of Mohs surgery and potential reconstructive surgery, including but not limited to, bleeding, scarring, infection, recurrence, injury to functionally or cosmetically important nerve structures and an unsatisfactory cosmetic result were reviewed. The patient was given an opportunity to ask questions, and I believe that all of her questions were answered satisfactorily. In addition the patient was provided with written material that describes the Mohs procedure and related matters. Ms. Hernandez understands that following Mohs surgery an operative repair may be required and may involve substantial suturing. We have jointly planned to have me repair the wound at the day of surgery. She understands that following reconstruction, if performed, many months may elapse before a decisioncan be made about the final cosmetic result, and that, in some cases a revision may be necessary tooptimize the outcome. I explained to Ms. Hernandez that in addition to the risk of recurrence from her skin cancer she has an increased risk of developing additional new skin cancers elsewhere. For that reason, follow up for ongoing skin surveillance examinations, after surgery, will be imperative. The patient has been scheduled to undergo surgery today. Note: None Daniel Fischer PA-C 02/22/2016 8:03 Darnell Adkins MD 02/22/2016 13:45 MOHS OPERATIVE REPORT Patient Name: Mahesh Hernandez Date of Service: February 22, 2016 Surgeon: Darnell Adkins MD Supervisor Precision Optical Elements: Daniel Fischer PA-C Case #: [id number] Preoperative Diagnosis: basal cell carcinoma Preoperative Procedure: Mohs micrographic surgery Location of Lesion: left medial forehead Preoperative Lesion Size: 1.4 cm x 0.6 cm Preoperative Procedure: Mohs microscopically-controlled fresh tissue excision Indications: The patient presents with a basal cell carcinoma. Because of the histologic and clinical nature of the lesion, as well as its location, the need to achieve the highest cure rate while providing maximum tissue preservation warranted tumor extirpation via microscopically-controlled excision using the Mohs fresh tissue technique. Alternate therapeutic options were discussed on several occasions prior to surgery. After informed consent was obtained and appropriate instruction was provided, the patient underwent tumor extirpation by the Mohs fresh tissue technique as follows: PROCEDURE - INITIAL STAGE: Patient position: supine Anesthesia: 1% lidocaine with epinephrine 1:100,000 local infiltration Prep: Povodine Iodine The patient was brought to the operative suite. The lesion was identified and was prepped in a sterile fashion. The area was infiltrated with lidocaine/epinephrine to achieve complete anesthesia and to augment hemostasis. An initial beveled excision was performed to the subcutis with a scalpel blade and tissue scissors as indicated. A hash was created in the specimen and within the adjacent epidermis for marking purposes. The Mohs specimen was excised in a sharp manner, and carefully placed in proper orientation on the surgical tray. Hemostasis of the operative wound was obtained with carefulspot electrocoagulation. A sterile non-adherent dressing was applied to the operative wound. The Mohs tissue specimen was carefully transferred to the lab where the tissue was divided, and color inked for orientation by me. These specimens were mapped and then handed personally to the automation technician for frozen sectioning. The tissue was embedded so that the deep and surface margins lay in the same plane, and sections were made through this plane. Once the slide preparation was complete I personally performed histologic evaluation and interpretation of all sections. A summary of my findingsmay be found below. Stage 1 findings: Wound Depth subcutis Sections Created 2 Number of Sections Containing Tumor 0 With the patient clear of microscopic tumor, surgery was considered complete. Postoperative Wound Size: 1.1 x 1.6 cm Final Diagnosis: basal cell carcinoma Final Procedure: Mohs micrographic surgery Blood Loss: Minimal Operative Time: 45 minutes Complications: None Note: None Darnell Adkins MD 02/22/2016 13:45 COMPLEX REPAIR Patient Information: Mahesh Hernandez 60 y.o. female Referring Provider: Veronica Aguilar NP Surgeon: Darnell Adkins MD Supervisor Precision Optical Elements: Daniel Fischer PA-C Preoperative Diagnosis: basal cell carcinoma Preoperative Procedure: Complex Linear Closure Wound Location: left medial forehead Wound Dimensions: 1.1 cm x 1.6 cm INDICATIONS: The patient presents with an operative wound following tumor removal. After careful consideration and discussion of all repair options, it was determined that, given the location and nature of the defect, a multilayered complex linear closure offered the best chance for preservation of normal anatomic and functional relationships. Alternate options were discussed and the patient was encouraged toask questions, which, I believe, were answered appropriately. Informed consent was obtained in writing. After informed consent was obtained and appropriate instruction was provided, the patient underwent operative repair as follows. PROCEDURE: Patient Position: supine Anesthesia: 1% lidocaine with epinephrine 1:100,000 local infiltration Prep: Povodine Iodine The Mohs operative defect was identified, and the area was infiltrated with lidocaine/epinephrine to achieve complete anesthesia and to augment hemostasis. The area was prepped in the usual sterile fashion and was draped with sterile drapes. A linear closure was designed with care to place the operative repair within functional and cosmetic lines to minimize the postoperative distortion of normaltissues. The wound edges were prepared using a # 15 scalpel blade to precisely delineate the operative repair and were then extensively undermined with combined blunt and, as needed, sharp dissectiontaking great care to avoid functionally important vessels and nerves. Undermining was carried out at the level of the muscle. Hemostasis of the operative wound was obtained with careful spot electrocoagulation, and ligature as indicated. The wound edges were then approximated using 5.0 Monocryl (poliglecaprone 25) buried interrupted sutures at the level of the subcutis and dermis. The epidermis was then approximated using 6.0 Fast absorbing plain gut. The final wound length was 4.0 cm Final Diagnosis: Defect following microscopically controlled excision. Final Procedure: Complex linear closure Blood Loss: minimal Operative Time: 30 minutes Complications: none Note: none Darnell Adkins MD 02/22/2016 13:47 * Gabby Mays - 02/22/2016 0801 EDT Patient Education Topic: wound care Method: Handout and Verbal Taught to: Patient Barriers: None Outcomes: independent Signature: Gabby aMys Icu Nurse, Dermatology 8:01 02/22/2016 documented in this encounter Plan of Treatment Not on file documented as of this encounter Visit Diagnoses Diagnosis Basal cell carcinoma of forehead- Primary Basal cell carcinoma of skin of other and unspecified parts of face documented in this encounter Care Teams Criminal Intelligence Specialist Relationship Specialty Start Date End Date Unknown, Provider, PCP - General 02/21/16 04/14/21 documented as of this encounter
--- OUTSIDE RECORDS SUMMARY | 2024-07-29 00:08 | XMS_ITS | Encounter Summary ---
Author Organization [facility] Address [address] [place] [address] Care Team Providers Care Pricing Coordinator Name Role Phone Unknown, Provider Primary Care Provider Unava ilable Encounter Details Date Type Department Care Team (Late st Contact Info) Description 08/13/2018 Results Only [facility] [phone] Luann Willard, [facility] [address] [place] [address] [place] [id number] Social History Tobacco Use Types Packs/Day Years [...] Name Priority Date/Time Associated Diagnosis Comments PAP TEST- RESULT ONLY Routine 08/13/2018 0:00 EST documented in this encounter Results * PAP TEST- RESULT ONLY (08/13/2018 0:00 EST) Pathology Report: CYTOPATHOLOGY REPORT Reports generated via electronic interface contain original data; however they are lacking the format of the original report. Caution should be taken when reading/interpreti ng unformatted reports. Name: ? MAHESH HERNANDEZ ? Accession #: ? [id number] ? : ? 1955 (Age: 63) ??F ?Collect Date: ? 08/13/2018 ? Location: ? [facility] ? Receive Date: ? 08/16/2018 ? Provider: LUANN WILLARD SOD CUTTER Copy to: J LUIS KINNEY MD ? Final Report SPECIMEN ADEQUACY ? Satisfactory for Evaluation - assessment of transformation zone component not applicable ( e.g. atrophy, vaginal sample, hysterectomy) GENERAL CATEGORIZATION ? Negative for Intraepithelial Lesion or Malignancy ?? Last Menstrual Period: 2004 Other: Stenotic os Specimen/Source: ??Pap Test, Cervix, ThinPrep Imaging System with manual evaluation Document reviewed and electronically signed by: ? Moses Bravo, ADENIKE(ASCP) ? Report ??Date: 08/17/2018 13:59 HPV with Pap Test ? Date Ordered: ? 08/17/2018 ? Status: ?? Signed Out ?Date Complete: ? 08/18/2018 ? By: ??System Interface ? Date Reported: ? 08/18/2018 ? Interpretation RESULT: Negative for HPV. No E6 or E7 mRNA is detected from HPV types 16,18,31,33,35, 39,45,51,52,56,58, 59,66, and 68 by receiver/laborer mediated amplification. Comments Document reviewed and electronically signed by: ? System Interface ? Report date: 08/18/2018 By the signature above, the attending physician certifies that he/she has personally conducted a gross and/or microscopic examination of the described specimens and rendered or confirmed the above diagnosis. End of Report [facility] 08/13/2018 08/16/2018 us Luann Willard SOD CUTTER PATHOLOGY ORDERABLES Final R esult [facility] [address] [place] [address] documented in this encounter Visit Diagnoses Not on filedocumented in this encounter Care Teams Pricing Coordinator Relationship Specialty Start Date End Date Unknown, Provider, PCP - General 02/21/16 04/14/21 documented as of this encounter
--- OUTSIDE RECORDS SUMMARY | 2024-07-29 00:08 | XMS_ITS | Encounter Summary ---
Author Organization [facility] Address [address] [place] [address] Care Team Providers Care Group Fitness Assistant Department Head Name Role Phone Unavailable Primary Care Provider Unavailabl e Encounter Details Date Type Department Care Team (Latest Contact Info) Description 06/17/2005 13:27 EST Hospital Encounter [facility] [address] [place] [address] Cherelle Wright PA-C [address] [place] [phone] Discharge Disposition: Auto Discharge Social History Tobacco Use Types Packs/Day Years Used Date Smoking Tobacco: Never Assessed Comments Unknown Sex and Gender Information Value Date Recorded Sex Assigned at Not on file Legal Sex Female 18:36 EST Gender Identity Not on file Sexual Orientation Not on file documented as of this encounter Discharge Disposition Disposition Code Departure Means Destination Auto Discharge documented in this encounter Plan of Treatment Not on file documented as of this encounter Visit Diagnoses Not on filedocumented in this encounter
--- OUTSIDE RECORDS SUMMARY | 2024-07-29 00:08 | XMS_ITS | Encounter Summary ---
Author Organization [facility] Address [address] [place] [address] Care Team Providers Care Salesperson [employer] And Glassware Name Role Phone Unknown, Provider MD Primary Care Provider Unava ilable Unknown, Provider MD Unavailable Unavailable Encounter Details Date Type Department Care Team (Late st Contact Info) Description 04/19/2021 Lab Requisition [facility] Pathology & Laboratory Medicine - [facility] [address] [place] [address] Amee Marcano PA-C DDW - [facility]ermat[facility] [address] [place] [address] [address],[facility] [address] [place] [address] Neoplasm of uncertain behavior of skin Social History Tobacco Use Types Packs/Day Years [...] Procedure Name Priority Date/Time Associated Diagnosis Comments SURGICAL PATHOLOGY Today 04/19/2021 14 :13 EDT Neoplasm of uncertain behavior of skin documented in this encounter Results * SURGICAL PATHOLOGY (04/19/2021 14:13 EDT) Note to Patient The following pathology results have been interpreted by your pathologist and may be available to you before your health provider has had the opportunity to review them. Please allow time for your provider to receive these results and explore management options, if applicable. 04/23/2021 15:02 EST [facility] Final Diagnosis A. SKIN OF ARM, LEFT DISTAL POSTERIOR UPPER, SHAVE BIOPSY: - Malignant melanoma, superficially invasive (superficial spreading type). See comment and synoptic. - Melanoma thickness: 0.2 mm. - Melanoma is non-ulcerated. 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 04/23/2021 15:02 [facility] Diagnosis Comment The biopsy consists predominantly of melanoma in situ. Centrally, there are small foci of superficial dermal invasion. Melanoma in situ is present at the peripheral tissue edge. Traffic Signal Mechanic slides of this case were reviewed at the intradepartmental consultation conference. Results called to [facility] Dermat[facility] on 04/23/2021. 04/23/2021 15:02 [facility] Attestation By the signature below, the attending physician certifies that they have 1) personally conducted a gross and/or microscopic examination of the described specimen(s), and/or personally interpreted the results of laboratory testing of the described specimen(s), and 2) personally rendered or confirmed the above diagnosis. 04/23/2021 15:02 [facility] at 1502 Synoptic MELANOMA OF THE SKIN: Biopsy MELANOMA OF THE SKIN: BIOPSY - A SPECIMEN ?? Procedure: ?Biopsy, shave ?? Specimen Laterality: ?Left TUMOR ?? Tumor Site: ?Skin of upper limb and shoulder: Distal posterior upper arm ?? Histologic Type: ?Superficial spreading melanoma ?? Maximum Tumor (Breslow) Thickness in Millimeters: ?0.2 Millimeters (mm) ?? Tumor Extent: ? Macroscopic Satellite Nodule(s): ?Not identified ? Ulceration: ?Not identified ? Anatomic (Feliz) Level: ?II (melanoma present in but does not fill and expand papillary dermis) ?? Accessory Findings: ? Mitotic Rate: ?None identified ? Microsatellite(s): ?Not identified ? Lymphovascular Invasion: ?Not identified ? Neurotropism: ?Not identified ? Tumor-Infiltrating Lymphocytes: ?Not identified ? Tumor Regression: ?Not identified ?? MARGINS: ? Peripheral Margins: ?Uninvolved by invasive melanoma ? Distance of Invasive Melanoma from Closest Peripheral Margin in Millimeters (mm): ?2.0 Millimeters (mm) ? Status of Melanoma In Situ Involvement at Peripheral Margins: ?Involved by melanoma in situ ? Deep Margin: ?Uninvolved by invasive melanoma ? Distance of Invasive Melanoma from Deep Margin in Millimeters (mm): ?0.75 Millimeters (mm) ?? PATHOLOGIC STAGE CLASSIFICATION (pTNM, AJCC 8th Edition): ? Primary Tumor (pT): ?pT1a 04/23/2021 15:02 [facility] Microscopic Description Sections consist of shave biopsy of skin to the mid reticular dermis. There is a broad, predominantly intraepidermal melanocytic proliferation that spans much of the biopsy specimen. The intraepidermal component consists of nests that vary in size and shape. Individual melanocytes are increased in density between the nests and show crowding and upward migration throughout the epidermis. Melanocytes are enlarged and have a moderate amount of wispy cytoplasm. There is moderate degree of nuclear atypia. Within the dermis, centrally, there are occasional loose nests and individual cells that features similar to those noted within the epidermis. No dermal mitotic figures are noted. 04/23/2021 15:02 [facility] Clinical History Suspicious irregular multicolored macule; Ddx: Malignant melanoma vs atypical nevus vs lentigo vs other; clinical diagnosis code: D48.5 04/23/2021 15:02 [facility] Gross Description A. Received in formalin labelled with proper patient identification (initials H, V) and left distal posterior upper... is a 0.9 x 0.8 x 0.1 cm irregular shave of mottled lyle-white skin. The margin is inked. The specimen is trisected and entirely submitted in A1. KIRAN RAM(ASCP) 04/22/2021 7:50 04/23/2021 15:02 [facility] Performing Lab [facility] 04/23/2021 15:02 [facility] Scanned Images 04/23/2021 15:02 EST [facility] Tissue TISSUE SPECIMEN FROM SKIN / Unknown 04/19/2021 14:13 EDT 04/19/2021 22:00 EDT us Amee Marcano PA-C PATHOLOGY ORDERABLES Final Result [facility] [address] [place] [address] documented in this encounter Visit Diagnoses Diagnosis Neoplasm of uncertain behavior of skin documented in this encounter Care Teams Salesperson [employer] Relationship Specialty Start Date End Date Unknown, ProviderMD PCP - General 04/15/21 Unknown, ProviderMD 04/15/21 documented as of this encounter
--- OUTSIDE RECORDS SUMMARY | 2024-07-29 00:08 | XMS_ITS | Encounter Summary ---
Author Organization [facility] Address [address] [place] [address] Care Team Providers Care Traffic Worker Name Role Phone Unavailable Primary Care Provider Unavailabl e Encounter Details Date Type Department Care Team (Late st Contact Info) Description 04/25/2014 Results Only [facility] Laboratory Services - [facility] ([facility] [address], [place] [id number] Luann Willard, [facility] [address] [place] [address] [place] [phone] Social History Tobacco Use Types Packs/Day Years [...] Diagnosis Comments PAP TEST- RESULT ONLY Routine 04/25/2014 0:00 EST documented in this encounter Results * PAP TEST- RESULT ONLY (04/25/2014 0:00 EST) Pathology Report: CYTOPATHOLOGY REPORT Reports generated via electronic interface contain original data; however they are lacking the format of the original report. Caution should be taken when reading/interpreti ng unformatted reports. Name: ? MAHESH HERNANDEZ ? Accession #: ? [id number] ? : ? 1955 (Age: 59) ??F ?Collect Date: ? 04/25/2014 ? Location: ? [facility] ? Receive Date: ? 04/26/2014 ? Provider: LUANN WILLARD NUCLEAR MEDICINE TECHNICIAN Copy to: EVENS CURRY NUCLEAR MEDICINE TECHNICIAN ? Final Report SPECIMEN ADEQUACY ? Satisfactory for Evaluation - assessment of transformation zone component not applicable ( e.g. atrophy, vaginal sample, hysterectomy) - obscuring contamination, possibly lubricant GENERAL CATEGORIZATION ? Negative for Intraepithelial Lesion or Malignancy ?? Other: Additional clinical information: Stenotis os Specimen/Source: ??Pap Test, Cervix/Endocervix, ThinPrep Imaging System with manual evaluation Document reviewed and electronically signed by: ? Moses Bravo, [place](ASCP) ? Report ??Date: 05/02/2014 14:11 HPV with Pap Test ? Date Ordered: ? 05/02/2014 ? Status: ?? Signed Out ?Date Complete: ? 05/04/2014 ? By: ??System Interface ? Date Reported: ? 05/04/2014 ? Interpretation RESULT: Positive for high or intermediate risk HPV. E6 OR E7 mRNA from one or more types of HPV types 16,18,31, 33,35,39,45,51,52, 56,58,59,66, and 68 is detected by lab manager mediated amplification. High and intermediate risk HPV types are associated with most squamous intraepithelial lesions and cervical cancers. Comments Document reviewed and electronically signed by: ? System Interface ? Report date: 05/04/2014 By the signature above, the attending physician certifies that he/she has personally conducted a gross and/or microscopic examination of the described specimens and rendered or confirmed the above diagnosis. End of Report [facility] 04/25/2014 04/26/2014 us Luann Willard NUCLEAR MEDICINE TECHNICIAN PATHOLOGY ORDERABLES Final R esult [facility] [address] [place] [address] documented in this encounter Visit Diagnoses Not on filedocumented in this encounter
--- OUTSIDE RECORDS SUMMARY | 2024-07-29 00:08 | XMS_ITS | Encounter Summary ---
Author Organization [facility] Address [address] [place] [address] Care Team Providers Care Inspector Soldering Name Role Phone Unknown, Provider MD Primary Care Provider Unava ilable Unknown, Provider MD Unavailable Unavailable Encounter Details Date Type Department Care Team (Late st Contact Info) Description 01/10/2022 Lab Requisition [facility] Pathology & Laboratory Medicine - [facility] [address] [place], [place] [phone] Outr Resulting Lab, Provider Social History Tobacco Use Types Packs/Day Years [...] Procedure Name Priority Date/Time Associated Diagnosis Comments TRANSFERRIN Routine 01/09/2022 11:50 EDT documented in this encounter Results * (ABNORMAL) TRANSFERRIN (01/09/2022 11:50 EDT) Transferrin 197(L) 201 - 352 mg/dL 01/13/2022 9:56 EDT [facility] Blood VENOUS BLOOD / Unknown 01/09/2022 11:50 EDT 01/10/2022 17:11 EDT us Provider Outr Resulting Lab CHEMISTRY & BLOOD GA S ORDERABLES Final Result [facility] [address] [place] [address] documented in this encounter Visit Diagnoses Not on filedocumented in this encounter Care Teams Inspector Soldering Relationship Specialty Start Date End Date Unknown, Provider, PCP - General 04/15/21 Unknown, ProviderMD 04/15/21 documented as of this encounter
--- OUTSIDE RECORDS SUMMARY | 2024-07-29 00:08 | XMS_ITS ---
Author Organization Unknown Address [address] [place] [phone] Phone Care Team Providers Care Ship Construction Teacher Name Role Phone NIRMAL Marin Attending Unavailable Results BD DXA BONE DENSITY HIP AND SPINE - Completed: 06/22/2024 12:33 LOINC: [facility] RADIOLOGY [place], [place] [address] RADIOLOGY TSO REPORT Patient Name: KRYSTLE SAVAGE MRN: Sex: : Age: [id number] F 1955 [id number] Account: Accession: Admit: StayType: [id number] 06/22/2024 O Ordered: Order ID: Submitted: Ordering Provider: 06/22/2024 12:17 [id number] KT J LUIS KINNEY Completed: Technologist: Resulted: 06/22/2024 12:33 DA 06/22/2024 17:06 EXAMINATION: BD DXA BONE DENSITY HIP AND [...] Major osteoporotic fracture: 12% Hip fracture: 2.3% IMPRESSION: Osteopenia in the lumbar spine and the left femoral neck. ___ Prevent Fractures! PATIENTS NOT ON TREATMENT: For patients with osteopenia, *the fracture risk calculated by FRAX is displayed below*. Offer treatment for osteoporosis (calcium, vitamin D, and medication) if: * T less than or equal to -2.5, after excluding or treating secondary causes * FRAX gives a 10-year risk of [...] in the care of this patient. If you are a health care provider and have any questions regarding this report, please contact the number below. For patients who have questions please contact the health progressive care unit registered nurse that requested your imaging first. Social History Type Status Start Date End Date Code Code Syst em Smoking History Never smoker (Never Smoked) [id number] SNOMED CT Sex Female Hospital Discharge Instructions [...] Diagnosis Start Date Code Code Sys tem Menopause present 06/22/2024 [id number] SNOMED-CT Personal Care Team Section Performer Name Performer Role Active Date Inactive Da te
--- OUTSIDE RECORDS SUMMARY | 2024-07-29 00:08 | XMS_ITS | Encounter Summary ---
Author Organization [facility] Address [address] [place] [address] Care Team Providers Care Meter Tester Primary Name Role Phone Unknown, Provider MD Primary Care Provider Unava ilable Unknown, Provider MD Unavailable Unavailable Encounter Details Date Type Department Care Team (Late st Contact Info) Description 05/20/2021 Lab Requisition [facility] Pathology & Laboratory Medicine - [address] [address] Alejandro Aj PA [address] [place] [address], [address] [place], [place] [id number] Malignant melanoma of left upper limb, including shoulder (HCC-CMS) (HCC) (HCC-CMS) Social History Tobacco Use Types Packs/Day Years [...] Date/Time Associated Diagnosis Comments SURGICAL PATHOLOGY Today 05/20/2021 13 :29 EST Malignant melanoma of left upper limb, including shoulder (HCC-CMS) (HCC) documented in this encounter Results * SURGICAL PATHOLOGY (05/20/2021 13:29 EST) Note to Patient The following pathology results have been interpreted by your pathologist and may be available to you before your health provider has had the opportunity to review them. Please allow time for your provider to receive these results and explore management options, if applicable. 05/23/2021 10:45 EST [facility] Final Diagnosis A. SKIN OF ARM, LEFT DISTAL POSTERIOR UPPER, EXCISION: -Malignant melanoma, residual, completely excised. See microscopic, comment and synoptic report. -Breast depth: 0.9 mm -No ulceration. 05/23/2021 10:45 [facility] Diagnosis Comment The patient's prior biopsy (KO [id number]) is reviewed and examination of this case. The excisional specimen shows residual malignant melanoma. The melanoma in situ extends to within 5 mm of the superior half and 6 mm of the inferior half. The invasive disease extends to within 6.5 mm of the inferior half. 05/23/2021 10:45 [facility] Attestation By the signature below, the attending physician certifies that they have 1) personally conducted a gross and/or microscopic examination of the described specimen(s), and/or personally interpreted the results of laboratory testing of the described specimen(s), and 2) personally rendered or confirmed the above diagnosis. 05/23/2021 10:45 [facility] at 1045 Synoptic MELANOMA OF THE SKIN: Excision, Re-Excision MELANOMA OF THE SKIN: EXCISION, RE-EXCISION ??- All Specimens SPECIMEN ?? Procedure: ?Re-excision ?? Specimen Laterality: ?Left TUMOR ?? Tumor Site: ?Skin of upper limb and shoulder ?? Histologic Type: ?Superficial spreading melanoma ?? Maximum Tumor (Breslow) Thickness in Millimeters: ?0.9 Millimeters (mm) ?? Tumor Extent: ? Macroscopic Satellite Nodule(s): ?Not identified ? Ulceration: ?Not identified ? Anatomic (Feliz) Level: ?IV (Melanoma invades reticular dermis) ?? Accessory Findings: ? Mitotic Rate: ?None identified ? Microsatellite(s): ?Not identified ? Lymphovascular Invasion: ?Not identified ? Neurotropism: ?Not identified ? Tumor-Infiltrating Lymphocytes: ?Not identified ? Tumor Regression: ?Not identified ?? MARGINS: ? Peripheral Margins: ?Uninvolved by invasive melanoma ? Distance of Invasive Melanoma from Closest Peripheral Margin in Millimeters (mm): ?6.5 Millimeters (mm) ? Location: ?inferior ? Status of Melanoma In Situ at Peripheral Margins: ?Uninvolved by melanoma in situ ? Distance of Melanoma in situ from Closest Peripheral Margin in Millimeters (mm): ?5 Millimeters (mm) ? Location: ?superior ? Deep Margin: ?Uninvolved by invasive melanoma ? Distance of Invasive Melanoma from Deep Margin in Millimeters (mm): ?5.7 Millimeters (mm) ?? LYMPH NODES: ? Regional Lymph Nodes: ?No lymph nodes submitted or found ?? PATHOLOGIC STAGE CLASSIFICATION (pTNM, AJCC 8th Edition): ? Primary Tumor (pT): ?pT1b ? Regional Lymph Nodes (pN): ?pNX Comment(s) Comment(s): ?[id number] 05/23/2021 10:45 [facility] Microscopic Description The excisional specimen shows residual malignant melanoma. A SOX-10 ALK PHOS (SP267, Cell Keenan) is performed on block A5 and shows the invasive component extending to a depth of 0.9 mm. NOTE: One or more of the reagents used in immunoperoxidase testing in this case may not have been cleared or approved by the U.S. Food and Drug Administration (FDA). The FDA has determined that such clearance or approval is not necessary. These tests are used for clinical purpose 05/23/2021 10:45 [facility] Clinical History Well-healed, pink scar (S/P biopsy); DDx: Malignant melanoma: Please check margins; suture superior; clinical diagnosis code: C43.62 05/23/2021 10:45 [facility] Gross Description A. Received in formalin labelled with proper patient identification (initials H, V) and left distal posterior upper... Is an oriented, circular excision of lyle-montano skin with a suture at 1 aspect indicated, per the requisition, to be superior. The specimen is 2.7 cm medial to lateral by 2.3 cm superior to inferior and excised to a maximum depth of 0.6 cm. There is a 0.8 x 0.6 x 0.1 cm brown-snell crust centrally located on the skin surface, 0.8 cm from the nearest medial resection margin. The specimen is inked as follows: The superior half is blue and the inferior half is black. The specimen is serially sectioned from medial to lateral and entirely submitted as follows: BLOCK FIGUEROA A1- medial edge, en face A2-A6- 7 central sections A7- lateral edge, en face KIRAN RAM([facility]) 05/21/2021 9:02 05/23/2021 10:45 EST [facility] Performing Lab [facility] 10:45 EST [facility] Scanned Images 05/23/2021 10:45 EST [facility] Tissue TISSUE SPECIMEN FROM SKIN / Unknown 05/20/2021 13:29 EST 05/20/2021 22:15 EST us Alejandro BECK PATHOLOGY ORDERABLES Final Res ult [facility] [address] [place] [address] documented in this encounter Visit Diagnoses Diagnosis Malignant melanoma of left upper limb, including shoulder (HCC-CMS) documented in this encounter Care Teams Meter Tester Primary Relationship Specialty Start Date End Date Unknown, Provider, PCP - General 04/15/21 Unknown, ProviderMD 04/15/21 documented as of this encounter
--- OUTSIDE RECORDS SUMMARY | 2024-07-29 00:08 | XMS_ITS | Encounter Summary ---
Author Organization [facility] Address [address] [place] [address] Care Team Providers Care Financial Rep Name Role Phone Unavailable Primary Care Provider Unavailabl e Encounter Details Date Type Department Care Team (Late st Contact Info) Description 05/05/2008 Before PRISM Converted Visit (Maple) [facility] - Maple conversion [address] [place] [address] Luann Willard, [facility] [address] [place] [address] [place] [phone] Social History Tobacco Use Types Packs/Day Years [...] Procedure Name Priority Date/Time Associated Diagnosis Comments HPV DETECTION, HIGH RISK TYPES Routine 05/05/2008 11:00 EST CYTOPATHOLOGY Routine 05/05/2008 0:00 EST documented in this encounter Results * HUMAN PAPILLOMA VIRUS DNA TEST (05/05/2008 11:00 EST) Specimen Description Cervix, ThinPrep vial [facility] Result Negative for HPV types 16, 18, 31, 33, 35, 39, 45, 51, 52, 56, 58, 59, and 68. [facility] Report Status Final 05/18/2008 [facility] 05/05/2008 11:0 0 EST 05/12/2008 8:00 EST us Luann Willard AR MANAGER MICROBIOLOGY - GENERAL ORDER [place] Final Result [facility] [address] [place] [address] * CYTOPATHOLOGY (05/05/2008 0:00 EST) Pathology Report: CYTOPATHOLOGY REPORT ? Reports generated via electronic interface contain original data; ? however they are lacking the format of the original report. ? Caution should be taken when reading/interpreti ng unformatted reports. ? Name: ? MAHESH HERNANDEZ ? Accession #: ? [id number] ? : ? 1955 (Age: 53) ??F ?Collect Date: ? 05/05/2008 ? Location: ? [facility] ? Receive Date: ? 05/08/2008 ? Provider: ?LUANN LISA AR MANAGER ? Copy to: ? Specimen/Source: ?Pap Test, Cervix/Endocervix, ThinPrep Imaging System ? with manual evaluation ? Last Menstrual Period: ? 2005 ? Other: ? HPVDX - HPV testing requested regardless of diagnosis on current ThinPrep Pap ?? test. ? SPECIMEN ADEQUACY ? Satisfactory for Evaluation ? - transformation zone component present ? GENERAL CATEGORIZATION ? Negative for Intraepithelial Lesion or Malignancy ? Document reviewed and electronically signed by: ? Cristy Verville,CT(ASCP) ? Report Date: ??05/10/2008 12:04 ? End of Report ? [facility] 05/05/2008 05/08/2008 us Luann Willard AR MANAGER PATHOLOGY ORDERABLES Final R esult [facility] [address] [place] [address] documented in this encounter Visit Diagnoses Not on filedocumented in this encounter
--- OUTSIDE RECORDS SUMMARY | 2024-07-29 00:08 | XMS_ITS | Clinical Summary ---
Author Organization [facility] Address [address] [place] [address] Care Team Providers Care Tuck Pointer Name Role Phone Unknown, Provider MD Primary Care Provider Unava ilable Unknown, Provider MD Unavailable Unavailable Allergies Active Allergy Reactions Criticality Noted Date Comments Latex, Natural Rubber Rash 02/22/2016 Medications No known medications Active Problems No known active problems Social History Tobacco Use Types Packs/Day Years Used Date Smoking Tobacco: Never Comments Unknown Sex and Gender Information Value Date Recorded Sex Assigned at Not on file Legal Sex Female 18:36 EST Gender Identity Not on file Sexual Orientation Not on file Obstetrics History Last Filed Vital Signs Vital Sign Reading Time Taken Comments Blood Pressure 134/89 02/22/2016 0800 EDT Pulse 65 02/22/2016 0800 EDT Temperature 36 ??C (96.8 ??F) 02/22/2016 0800 EDT Respiratory Rate - - Oxygen Saturation - - Inhaled Oxygen Concentration - - Weight - - Height - - Body Mass Index - - Plan of Treatment Health Maintenance Due Date Last Done Comments Hepatitis C Screen 1955 Fall Risk Screening 02/26/2020 COVID-19 Vaccine (2023- season) 2024 RSV Immunization ( o r 60+ Years) (1 - 1-dose 75+ series) 2030 Insurance [facility] MEDIC[facility] Care Teams Tuck Pointer Relationship Specialty Start Date End Date Unknown, Provider, PCP - General 04/15/21 Unknown, ProviderMD 04/15/21
--- OUTSIDE RECORDS SUMMARY | 2024-07-29 00:08 | XMS_ITS | Encounter Summary ---
Author Organization [facility] Address [address] [place] [address] Care Team Providers Care Staff Climate Scientist Name Role Phone Unavailable Primary Care Provider Unavailabl e Encounter Details Date Type Department Care Team (Late st Contact Info) Description 04/29/2006 Results Only [facility] [place] conversion [address] [place] [address] Emelyn Olivarez NP Social History Tobacco Use [...] Priority Date/Time Associated Diagnosis Comments CYTOPATHOLOGY Routine 04/29/2006 0:00 EST documented in this encounter Results * CYTOPATHOLOGY (04/29/2006 0:00 EST) Pathology Report: CYTOPATHOLOGY REPORT Reports generated via electronic interface contain original data; however they are lacking the format of the original report. Caution should be taken when reading/interpreti ng unformatted reports. Name: ? KRYSTLE HERNANDEZ ? Accession #: ? [id number] : ? 1955 (Age: 51) ??F ?Collect Date: ? 04/29/2006 Location: ? [facility] ? Receive Date: ? 05/01/2006 Provider: ?EMELYN OLIVAREZ MACHINE CONTAINER WASHER Copy to: ? Specimen/Source: ?ThinPrep Pap Test, Cervix/Endocervix, processed on GI Track ThinPrep Imaging System, with manual evaluation Last Menstrual Period: ? 1 year ago Other: ? HPVA - HPV testing requested if ASC-US on the current ThinPrep Pap test. ? SPECIMEN ADEQUACY ? Satisfactory for Evaluation - transformation zone component present GENERAL CATEGORIZATION ? Negative for Intraepithelial Lesion or Malignancy ? Document reviewed and electronically signed by: ? Charleen Hall, ADENIKE(ASCP) ? Report Date: ??05/11/2006 13:45 End of Report SASHA GONZALEZ 04/29/2006 05/01/2006 us Emelyn Olivarez NP PATHOLOGY ORDERABLES Final Re sult SASHA GONZALEZ [address] [place] [address] documented in this encounter Visit Diagnoses Not on filedocumented in this encounter
--- OUTSIDE RECORDS SUMMARY | 2024-07-29 00:08 | XMS_ITS | Referral Summary ---
Author Organization [facility] Address [address] [place] [address] Care Team Providers Care Maintenance Journeyman Name Role Phone Unknown, Provider MD Primary [...] on file Sexual Orientation Not on file Last Filed Vital Signs Vital Sign Reading Time Taken Comments Blood Pressure 134/89 02/22/2016 0800 EDT Pulse 65 02/22/2016 0800 EDT Temperature 36 ??C (96.8 ??F) 02/22/2016 0800 EDT Respiratory Rate - - Oxygen Saturation - - Inhaled Oxygen Concentration - - Weight - - Height - - Body Mass Index - - Plan of Treatment Not on file Insurance [facility] MEDICARE Care Teams Maintenance Journeyman Relationship Specialty Start Date End Date Unknown, Provider, PCP - General 04/15/21 Unknown, ProviderMD 04/15/21
--- OUTSIDE RECORDS SUMMARY | 2024-07-29 00:08 | XMS_ITS | Encounter Summary ---
Author Organization [facility] Address [address] [place] [address] Care Team Providers Care Battery Container Tester Aluminum Name Role Phone Unavailable Primary Care Provider Unavailabl e Encounter Details Date Type Department Care Team (Late st Contact Info) Description 06/17/2005 Before PRISM Converted Visit ([place]) [facility] conversion [address], [place] [id number] [phone] Cherelle Wright PA-C [facility] [address] [phone] Social History Tobacco Use Types Packs/Day Years Used Date Smoking Tobacco: Never Assessed Comments Unknown Sex and Gender Information Value Date Recorded Sex Assigned at Not on file Legal Sex Female 18:36 EST Gender Identity Not on file Sexual Orientation Not on file documented as of this encounter Consult Notes * Cherelle Wright PA - 08/15/2009 0513 EST DIVISION OF DERMATOLOGY CONSULTATION - SUBJECTIVE: Mahesh is a 50woman who presents today for consultation at the request of Yoselin Grajeda for evaluation of a growth on the right mandaen. She is not sure exactly how long this has been there, but it has been quite some time. She thinks this may have increased in size over time, but again she is not sure. It does not itch, hurt or bleed. Her mother has had some type of growth removedon her nose, but she is not sure if this was cancerous. She has had a lot of sun over the years andrembers having a few major sunburns when she was younger.She is much better now about using sun protection and practicing sun avoidance. She has very dry skin overall. Please see the new patient intake form for current medications, medication allergies, past medical history and social history. OBJECTIVE: No acute distress. Fit and healthy appearing sitting comfortably. Skin exam: She has type II skin, reddish-brown hair and blue eyes. She has minimal to moderate actinic changes over the sun-exposed areas of the face, V of the chest, upper arms, and upper back/shoulders. On the right mandaen, just at the hairline, there is a 1.2 by 1.2 cm, light brown, waxy, stuck-on appearing plaque. Overall, her skin is quite dry, especially on the arms bilaterally. ASSESSMENT: 1. Seborrheic keratoses. 2. Actinic changes. 3. Xerosis cutis. PLAN: 1. She was reassured about the seborrheic keratosis. I explained that she may get more of these over time, and she was also given a handout for reference. 2. Reviewed the importance of continued good sun protection and self-examination. 3. Increase moisturizing, especially during the winter. 4. Follow up as needed. Signed by Estefanía Panchal MD 07/10/2005 14:50 Reviewed by Cherelle Wright PA-C 07/09/2005 13:09 Ancelmo Hall PA-CAnita L Licata, MD Dictated by: Cherelle Wright PA-C Estefanía Panchal MD D: - Cherelle Wright PA-C P - ah Job ID: Tape Document ID: [id number] cc: DORITA Garner documented in this encounter Plan of Treatment Not on file documented as of this encounter Visit Diagnoses Not on filedocumented in this encounter
--- OUTSIDE RECORDS SUMMARY | 2024-07-29 00:08 | XMS_ITS | Encounter Summary ---
Author Organization [facility] Address [address] [place] [address] Care Team Providers Care Timber Estimator Name Role Phone Evens Grajeda [facility] Primary Care Provider [phone] Encounter Details Date Type Department Care Team (Late st Contact Info) Description 04/26/2015 Results Only [facility] [phone] Luann Willard, [facility] [address] [place] [address] [place] [phone] Social History Tobacco Use Types Packs/Day Years [...] Diagnosis Comments PAP TEST- RESULT ONLY Routine 04/26/2015 0:00 EST documented in this encounter Results * PAP TEST- RESULT ONLY (04/26/2015 0:00 EST) Pathology Report: CYTOPATHOLOGY REPORT Reports generated via electronic interface contain original data; however they are lacking the format of the original report. Caution should be taken when reading/interpreti ng unformatted reports. Name: ? JANETTE SHANANGELES ? Accession #: ? [id number] ? : ? 1955 (Age: 60) ??F ?Collect Date: ? 04/26/2015 ? Location: ? [facility] ? Receive Date: ? 04/27/2015 ? Provider: LUANN WILLARD EGG PASTEURIZER Copy to: EVENS ANTOINETTE EGG PASTEURIZER ? Final Report SPECIMEN ADEQUACY ? Satisfactory for Evaluation - assessment of transformation zone component not applicable ( e.g. atrophy, vaginal sample, hysterectomy) GENERAL CATEGORIZATION ? Negative for Intraepithelial Lesion or Malignancy ?? Last Menstrual Period: 2004 Previous Gynecologic Pathology: HPV: + 2013 Yes: Stenotic os Specimen/Source: ??Pap Test, Cervix/Endocervix, ThinPrep Imaging System with manual evaluation Document reviewed and electronically signed by: ? ADENIKE Knight(ASCP) ? Report ??Date: 05/01/2015 15:55 HPV with Pap Test ? Date Ordered: ? 05/01/2015 ? Status: ?? Signed Out ?Date Complete: ? 05/03/2015 ? By: ??System Interface ? Date Reported: ? 05/03/2015 ? Interpretation RESULT: Negative for HPV. No E6 or E7 mRNA is detected from HPV types 16,18,31,33,35, 39,45,51,52,56,58, 59,66, and 68 by creative art therapist mediated amplification. Comments Document reviewed and electronically signed by: ? System Interface ? Report date: 05/03/2015 By the signature above, the attending physician certifies that he/she has personally conducted a gross and/or microscopic examination of the described specimens and rendered or confirmed the above diagnosis. End of Report [facility] 04/26/2015 04/27/2015 us Luann KEVIN PATHOLOGY ORDERABLES Final R esult [facility] [address] [place] [address] documented in this encounter Visit Diagnoses Not on filedocumented in this encounter Care Teams Timber Estimator Relationship Specialty Start Date End Date Evens Grajeda FNP PCP - General 04/20/15 02/20/16 documented as of this encounter
--- OUTSIDE RECORDS SUMMARY | 2024-07-29 00:08 | XMS_ITS | Encounter Summary ---
Author Organization [facility] Address [address] [place] [address] Care Team Providers Care Technology Coach Name Role Phone Yoselin Grajeda INTERNATIONAL COORDINATOR Primary Care Provider [phone] Reason for Visit * Reason Onset Date Comments Provider Referred 01/21/2016 Encounter Details Date Type Department Care Team (Late st Contact Info) Description 01/21/2016 Telephone [facility] Dermatology 3rd Floor [facility] [address] [place], [place] [address] Darnell Adkins MD [address] [place] [phone] Provider Referred Social History Tobacco Use Types Packs/Day Years Used Date Smoking Tobacco: Never Assessed Comments Unknown Sex and Gender Information Value Date Recorded Sex Assigned at Not on file Legal Sex Female 18:36 EST Gender Identity Not on file Sexual Orientation Not on file documented as of this encounter Miscellaneous Notes * Telephone Encounter - Gabby Mays - 01/23/2016 1044 EDT Patient requested to have no consult and schedule appointment for procedure. Reviewed the Mohs procedure and answered questions. Patient verbalized understanding with no barriers. Scheduled Mohs surgery on 02/22/16 at 8:00am. Referring office notified. * Telephone Encounter - Elizabeth Carrington - 01/23/2016 0958 EDT Patient returning call, Please call. * Telephone Encounter - Dragan Garcia - 01/21/2016 1405 EDT Notes and pathology received from Nilsa Aguilar NP referring patient for a BCC left medial forehead. Please call patient to schedule. documented in this encounter Plan of Treatment Not on file documented as of this encounter Visit Diagnoses Not on filedocumented in this encounter Care Teams Technology Coach Relationship Specialty Start Date End Date Yoselin Grajeda FNP PCP - General 04/20/15 02/20/16 documented as of this encounter
--- NOTE | 2024-07-29 12:00 | DI.MAMMO_ITS ---
Exam(s) MAMMO SCREENING EXAM: MAMMO SCREENING CLINICAL HISTORY: screening. TECHNIQUE: Bilateral full field digital CC and MLO mammographic images were obtained with 3D tomosyn thesis and utilizing computer aided detection (CAD). COMPARISON: Prior mammograms dating back to 2014 were reviewed. FINDINGS: There has been no significant change in the appearance and distribution of the fibroglandular tissue. Asymmetric nodular density in the central right breast is unchanged from 2015. There are no new spiculated masses nor new malignant appearing microcalcification groups. There is no significant architectural distortion nor skin thickening-retraction. IMPRESSION: Stable benign-appearing findings. No radiographic evidence of malignancy. BI-RADS Category 2 - Benign Findings Breast Density - Category B - Scattered areas of fibroglandular density Breast density Category C or D implies that the patient has dense breast tissue. Dense breast tissue can make it harder to find cancer on a mammogram. Dense breast tissue is also associated with an incr eased risk of breast cancer. This information about the result of the mammogram report was provided to the patient to raise their awareness. Use this report when you speak with the patient about their risks for breast cancer, which includes their family history. At that time, you may recommend additional screening tests (Ultrasoun d or MRI) as these tests may add significant information. A negative radiographic report should not delay biopsy if a dominant or clinically suspicious mass is present. Up to ten percent of cancers are not identified on mammography. A negative report may reinforce clinical impression. Adenosis and dense breasts may obscure an underlying neoplasm. False positive reports average 6 to 10%. Patient will receive a letter notifying them of these results.
== END 2024-07-29 00:24 ==
LOC: DI 00:05
PROVIDERS: PCP Family Medicine; Visit Provider Obstetrics & Gynecology
DX: Z12.31 Encounter for screening mammogram for malignant neoplasm of breast (principal); R92.323 Mammographic fibroglandular density, bilateral breasts; D24.1 Benign neoplasm of right breast
CPT/HCPCS: 77063; 77067